=== PATIENT | female | born 1990 | race Caucasian/White ===

== ENCOUNTER 2019-01-05 09:34 | Day surgery (SDC) | payer OTHER ==
--- NOTE | 2019-01-04 18:51 | PDGENHP ---
History and Physical - Chief Complaint RIGHT HIP PAIN - History of Present Illness 1. Femoroacetabular impingement (PRINCESS)~Cam type,~with~resultant labral tear,~ RIGHT side symptomatic 2. Right~Borderline Hip Dyplasia 3. ~~History of Left Hip Arthroscopy; 2014 Dr. Maldonado 4. 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 ~Sherryenjoys soccer~4 hrs/week, yoga and hiking. Brigitte's~right~hip pain started 3 years, with~no~recalled trauma or injury, and with~no~previous complaints.~Sherrydoes not have~a known history of hip dysplasia. 11/30/2014: ~Left Hip Arthroscopy; Dr. Enriquez; 100% relief from surgery Presentation today is of~anterior, posterior~right~hip pain.~~The hip~does not~ wake her~at night and~does~click and catch on~her. Sitting~can be a real struggle~for her.~Sherrydoes~report suffering from lower back pain episodes. Sherryhas~participated in physical therapy (6 months)~and has~tried other conservative measures including dry needling and massage therapy.~Tammy~has not~ received sufficient symptomatic improvement. Sherryhas~utilized medication for pain management, including CBD oil.~Sherry has used medication since the pain began. Sherrydenies issues with the left~hip. ~ Sherryunderstands that~tammy~has a hip and pelvis problem which should be researched and wishes to get a better understanding of~her~hip status, followed by an establishment of a treatment strategy, hoping~tammy~would be able to get back to~her~well being active life. History: Past medical history:~~ None which is relevant~ Relevant familial history:~Dad: HTN, [place], [place] ~~~~~~~~~~~~~~~~~~~~~~~~~~~~~~~~~~~~Mother: of metastatic breast cancer Past surgical history:~ No. Surgery Anesthesia Year 1 LEFT HIP ARTHROSCOPY general 2014 Sherrydenies problematic issues with general anesthesia in the past. I have reviewed, verified and agree with the past medical, surgical, family and social history. Current Medications:~currently has no medications in their medication list. ALLERGIES:~has No Known Allergies. Objective: Physical Examination: Sherryis 5~feet~5~inches tall and weighs~126~Lbs. Shoe size~7.5. Sherryis AAO x3; she~is well-nourished, in NAD. Skin is warm and dry. ~ Breathing is non-labored. ~CV with RRR by pulse. Abdomen is soft, NTND. Currently,~she~walks with a~normal~gait. Trendelenburg sign is~negative~and proprioception~is normal,~both~sides. She~presents~with mild~signs of joint laxity.~Beightons Score:~1 Lower spine examination is~negative~for sciatic or femoral nerve irritation with negative~SLR &~femoral stretch tests. Range of motion of the spine is normal~for flexion, extension, and rotations,~with no~associated pain. Strength, Sensation and pulses are~normal -~bilaterally Ankles and knees exams are~normal~and~no~mal-alignment is evident.~ She~has~no leg length discrepancy. Thigh circumference is~symmetric~with no evidence for muscle atrophy~on both~ sides. Hip ROM (degrees): FL ER At 90~hip FL IR At 90~hip FL AB AD EX IR Neutral hip ER Neutral hip R 105 45 35 45 10 10 45 30 L 100 50 15-20 45 5 10 45 25 Specific hip and pelvis tests: Impingement Test RICK Roll Add. Longus R +++ +++ Negative Negative L + + Negative Negative Glut. Med ITB Posterior Imp R Negative 5/5 strength Negative 5/5 strength Negative L Negative 5/5 strength Negative 5/5 strength Negative Squeeze test measured~strong Bony Symphysis pubis is~pain free~to touch while concentric activity of the rectus abdominis, does not~produce pain at its insertion. Ilio Psos specific tests are~positive for pain during cycling for~the right hip~ and remarkable for non painful snap HF has~good strength no pain~both hips. Greater trochanteric burse is~pain free~on both hips. Piriformis tests: FAIR is~positive,~with no~local signs of neuritis related to sciatic nerve. SIJs examination is~produces pain on~right side~with~normal~RICK in relation and local tenderness. Hamstrings tests are~negative~functional contraction and negative~tendinopathy both hips. On a daily basis, the following percentages reflectDeng's overall total pain : Deep hip:~65% SIJ:~35% Imaging: Radiology studies which I~have personally reviewed, analyzed and measured are below: XR: AP of the hip and pelvis: Performed in a~good~technique Coccyx to pubic symphysis distance~0~cm. 0~degrees [place]~Lines are preserved. Minimal~Pathological signs are seen in the Symphysis Pubis.~ Minimal~Pathological signs are seen at the Ischial~tuberosity. ~ Specific measurements show: NSA~ LCE Sourcil~Angle Sharp's angle Lat. Cam Lat. Pincer C.Over~sign Head~Coverage % ATDmm R 130 26 8 45 - - - 77 N L 130 27 8 45 - - - 77 N Pos. wall sign ISS NAD ~~Dysplasia Comments R Negative Negative 17.8~mm + L Negative Negative 16.7~mm + Sclerosis Sup. Lat. OA Cysts Joint Space-WBZ Joint Space-Medial R Negative Negative Negative 4.1~mm 4.1~mm L Negative Negative Negative 4.4~mm 4.3~mm X Table lateral: Anterior cam lesion is~seen~on the right hip. Alpha Angle: ~ Right~50~degrees Left~40~degrees Impression and plan:Madi Briggs~is a~28 y.o.~active female~suffering from symptomatic~Right~hip pain due to Left~Femoroacetabular impingement (PRINCESS) Cam type,~with~resultant labral tear~causing significant disability to~her~and altering~her~sport and life activities. Physical examination, imaging, and~her~story correspond with the diagnosis mentioned above. I explained that hip dysplasia is a condition wherein the hip joint has excessive play~and instability due to a variety of factors, including the depth and adequacy of the socket, the orientation of the femur bone, and ligament laxity around the hip joint. Dysplasia ranges in severity from borderline to rajiv, with treatment options being specific to the specific nature of the problem. Left untreated, the instability in the hip joint can cause progressive tearing of the labrum and deterioration of the surface cartilage, ultimately resulting in progressive osteoarthritis of the hip. I explained that femoroacetabular impingement (PRINCESS - Cam type) arises due to a bony or soft tissue conflict between the femur (ball) and acetabulum (socket) caused by an abnormality in the shape of the femoral head and neck. Over time, repetitive impingement can result in damage to the labrum and adjacent surface cartilage within the socket, ultimately giving rise to progressive osteoarthritis of the hip. I explained that although a labral tear can be a source of pain, it is rarely the root of the problem and typically occurs secondary to an underlying abnormality in the shape and mechanics of the hip joint. I reviewed conservative treatment options for Dysplasia and PRINCESS including activity modification to avoid positions of impingement or instability, physical therapy, non-steroidal anti-inflammatory medications, and various injections (corticosteroid and PRP) aimed at reducing inflammation in the hip joint or/and preventing dynamic instability and impingement. PRP injections may promote healing and reduce symptoms in certain cases but it will not repair chronically damaged tissue. Although these measures may help to buy time~and reduce current level of symptoms, they are not a definitive solution to the problem given the underlying abnormality in the shape of the hip joint. Patients who have failed conservative management and continue to experience symptoms are candidates for definitive surgical treatment, which may consist of hip arthroscopy alone or in combination with more invasive bony realignment procedures of the hip socket and/or femur called periacetabular osteotomy (CAMMIE) or derotational femoral osteotomy (DFO). Hip arthroscopy typically includes treating the labrum with either repair or reconstruction of the torn labrum; as well as addressing the underlying abnormalities by restoring the normal shape to the hip joint. If the cartilage is damaged a Microfracture surgical procedure may also be necessary to help stimulate the growth of fibrocartilage. If a patient requires a labral reconstruction or a Microfracture, the initial rehabilitation from the surgery may take longer, but the mcc results are typically favorable. I reviewed the technical aspects of hip arthroscopy including risks, benefits, and expected course of recovery.~Sherryunderstands that hip arthroscopy is a minimally invasive outpatient procedure carried out through small incisions on the outer aspect of the hip joint. During surgery, the labral tear will be identified and either repaired or reconstructed~using bone anchors and suture material. Additionally, any excessive bone will be removed with a high-speed darya to reshape the hip joint and restore normal anatomy. Risks include infection, bleeding, injury to nearby nerves or vessels, stiffness, persistent pain, instability, venous thromboembolic disease, and traction related complications including temporary foot numbness. Rarely, revision surgery may be required to address these problems. Overall recovery takes approximately 4~ 8~months depending on the extent of damage and degree of repair. In the event that the labral tissue quality is inadequate for successful repair and healing,~Sherryunderstands that a labral reconstruction will be performed. This procedure entails placing a cadaver tissue graft within the hip joint and stabilizing it with bone anchors to build a new labrum. The overall recovery time for labral reconstruction is similar to that of labral repair, although the surgical procedure takes longer to perform. BrigitteMadiwill review the info presented. In order to obtain more detailed information regarding the alignment, orientation, and shape of the bony hip and pelvis I will order a CT scan to be performed. The results of the CT scan, including femoral torsion and acetabular version measured values and 3D images, will aid me in deciding on the best treatment strategy and surgical pre-planning. In order to better evaluate the soft tissues and cartilage of the hip joint, I will order an MRI scan. Sherrywill contact us if she~wishes to pursue further treatment in the future. Sherryis happy with this plan. I have also supplied~her~with handouts, outlining the expected surgical treatment and rehab involved. I wish~BrigitteMadiall the best, ~~ LYLE Gonzalez History Information - Allergies/Home Medication List Allergies/Adverse Reactions: No Known Allergies Allergy (Unverified 01/01/19 16:04) Home Medications: Ibuprofen 01/01/19 [Last Taken Unknown] I have personally reviewed and updated: medical history - Social History Smoking Status: Never smoked Review of Systems Review of Systems: Physical Exam Physical Exam:
[2019-01-05] MEDS ORDERED: BUPIVACAINE 0.25% 30 ML SDV ONE (09:55)
[2019-01-05] MEDS ORDERED: EPINEPHrine 1 MG/ML INJ ONE (09:55)
[2019-01-05] MEDS ORDERED: PREGABALIN 150 MG CAP PO ONE (10:04)
[2019-01-05] MEDS ORDERED: LR 1,000 ML IV ONE (10:04)
[2019-01-05] MEDS ORDERED: ceFAZolin 2 GM/DEXTROSE 100 ML IV ONE (10:04)
[2019-01-05] MEDS ORDERED: ACETAMINOPHEN 500 MG TAB PO ONE (10:04)
[2019-01-05] MEDS ORDERED: MIDAZOLAM 2 MG/2 ML VIAL IVP ONE (10:30)
--- NOTE | 2019-01-05 10:31 | PDANEPAE ---
ANE History of Present Illness right femoroacetabular impingement and hip dysplasia ANE Past Medical History - Cardiovascular History Hx Hypertension: No Hx Arrhythmias: No Hx Chest Pain: No Hx Coronary Artery / Peripheral Vascular Disease: No Hx CHF / Valvular Disease: No Hx Palpitations: No - Pulmonary History Hx COPD: No Hx Asthma/Reactive Airway Disease: No Hx Recent Upper Respiratory Infection: No Hx Oxygen in Use at Home: No Hx Sleep Apnea: No Sleep Apnea Screening Result - Last Documented: Negative - Neurologic History Hx Cerebrovascular Accident: No Hx Seizures: No Hx Dementia: No - Endocrine History Hx Diabetes: No Hypothyroid: No Hyperthyroid: No Obesity: no - Renal History Hx Renal Disorders: No - Liver History Hx Hepatic Disorders: No - Neurological & Psychiatric Hx Hx Neurological and Psychiatric Disorders: No - Cancer History Hx Cancer: No - Congenital Disorder History Hx Congenital Disorders: No - GI History GERD: no Hx Gastrointestinal Disorders: No - Chronic Pain History Chronic Pain: Yes (R HIP) - Surgical History Prior Surgeries: L ARTHROSCOPY HIP ANE Review of Systems Review of systems is: negative Review of Systems: - Exercise capacity Exercise capacity: >=4 METS METS (RN): 6 METS ANE Patient History - Allergies Allergies/Adverse Reactions: No Known Allergies Allergy (Unverified 01/01/19 16:04) - Home Medications Home Medications: Ibuprofen 01/01/19 [Last Taken 12/15/18] - NPO status NPO Status: no food or drink >8 hours NPO Since - Liquids (Date): 01/05/19 NPO Since - Liquids (Time): 05:00 NPO Since - Solids (Date): 01/04/19 NPO Since - Solids (Time): 19:30 - Anes Hx Anes Hx: no prior problems - Smoking Hx Smoking Status: Never smoked - Family Anes Hx Family Anes Hx: none Family Hx Anesthesia Complications: NEG ANE Labs/Vital Signs - Vital Signs Vital Signs: reviewed preoperatively; see RN documention for details Blood Pressure: 116/90 Heart Rate: 52 Respiratory Rate: 20 O2 Sat (%): 99 Height: 165.1 cm Weight: 56.699 kg ANE Physical Exam - Airway Neck exam: FROM Mallampati Score: Class 1 Mouth exam: normal dental/mouth exam - Pulmonary Pulmonary: no respiratory distress, no rales or rhonchi - Cardiovascular Cardiovascular: regular rate and rhythym, no murmur, rub, or gallop - ASA Status ASA Status: I ANE Anesthesia Plan Anesthesia Plan: general endotracheal anesthesia
[2019-01-05] MEDS ORDERED: PROPOFOL/EMULSION 500 MG/50 ML BOTTLE IV ONE ×3 (10:41→12:43)
[2019-01-05] MEDS ORDERED: fentaNYL 100 MCG/2 ML INJ ONE ×3 (10:43→14:03)
[2019-01-05] MEDS ORDERED: LIDOCAINE 2% 5 ML SDV ONE (10:47)
[2019-01-05] MEDS ORDERED: PROPOFOL 200 MG/20 ML VIAL ONE ×3 (10:48→12:31)
[2019-01-05] MEDS ORDERED: DEXAMETHASONE 4 MG/ML VIAL ONE ×2 (11:02)
[2019-01-05] MEDS ORDERED: ONDANSETRON 4 MG/2 ML VIAL IVP PRN (11:46)
[2019-01-05] MEDS ORDERED: PROMETHAZINE HCL 25 MG/ML INJ IVP PRN (11:46)
[2019-01-05] MEDS ORDERED: NS 500 ML IV PRN (11:46)
[2019-01-05] MEDS ORDERED: ALBUTEROL 3 ML DEYVIAL IH PRN (11:46)
[2019-01-05] MEDS ORDERED: NALOXONE HCL 0.4 MG/ML INJ IVP PRN (11:46)
[2019-01-05] MEDS ORDERED: LABETALOL HCL 5 MG/ML 20 ML MDV IVP PRN (11:46)
[2019-01-05] MEDS ORDERED: METOCLOPRAMIDE 10 MG/2 ML VIAL IVP PRN (11:46)
[2019-01-05] MEDS ORDERED: MEPERIDINE 25 MG/0.5 ML AMP IVP PRN (11:46)
[2019-01-05] MEDS ORDERED: PHENYLEPHRINE HCL 100 MCG/ML SYR IVP PRN (11:46)
[2019-01-05] MEDS ORDERED: DEXAMETHASONE 4 MG/ML VIAL IVP PRN (11:46)
[2019-01-05] MEDS ORDERED: LR 500 ML IV PRN (11:46)
[2019-01-05] MEDS ORDERED: ACETAMINOPHEN 500 MG TAB PO PRN (11:46)
[2019-01-05] MEDS ORDERED: KETOROLAC 30 MG/1 ML SDV ONE (13:21)
--- NOTE | 2019-01-05 13:41 | POSTOPPROG ---
Post Op Note Date of Operation: 01/05/19 Surgeon: Gabriel Ty Pick And [employer]vel Worker: Dr. Davenport Anesthesia: GET(General Endotracheal) Pre-op Diagnosis: Right PRINCESS Post-op Diagnosis: Right PRINCESS Procedure: Right Hip Arthroscopy Inf/Abcess present in the surg proc area at time of surgery?: No
--- NOTE | 2019-01-05 13:50 | POSTANESTH ---
Post Anesthetic Evaluation Cardiovascular Status: Normal, Stable Respiratory Status: Normal, Stable Level of Consciousness/Mental Status: Can Participate in Eval Pain Control: Adequate, Prn Tx Ordered Nausea/Vomiting Control: Adequate, Prn Tx Ordered Complications Possibly Related to Anesthesia: None Noted
[2019-01-05] MEDS: fentaNYL 100 MCG/2 ML INJ IVP PRN ×2 (14:04→14:13)
[2019-01-05] MEDS ORDERED: oxyCODONE IR 5 MG TAB ONE ×2 (14:21→15:18)
[2019-01-05] MEDS ORDERED: ACETAMINOPHEN 500 MG TAB ONE (14:22)
[2019-01-05] MEDS: oxyCODONE IR 5 MG TAB PO PRN ×2 (14:23→15:21)
[2019-01-05] MEDS ORDERED: HYDROmorphONE/DILAUDID 2 MG/ML INJ ONE (14:31)
[2019-01-05] MEDS: HYDROmorphONE/DILAUDID 2 MG/ML INJ IVP PRN ×2 (14:32→14:48)
[2019-01-05 15:56] VITALS: BP 109/70
== END 2019-01-05 16:05 | disposition home or self-care (01) ==
LOC: FSGY 09:34
PROVIDERS: ATTEND Orthopaedic Surgery Sports Medicine
PROC: BQ101ZZ Fluoroscopy of Right Hip using Low Osmolar Contrast (ICD-10-PCS; principal; 2019-01-05 10:45)
PROC: 0SQ94ZZ Repair Right Hip Joint, Percutaneous Endoscopic Approach (ICD-10-PCS; principal; 2019-01-05 10:45)
PROC: 0SB94ZZ Excision of Right Hip Joint, Percutaneous Endoscopic Approach (ICD-10-PCS; principal; 2019-01-05 10:45)
DX: M25.851 Other specified joint disorders, right hip (principal); Q65.89 Other specified congenital deformities of hip; M65.88 Other synovitis and tenosynovitis, other site; M53.3 Sacrococcygeal disorders, not elsewhere classified
CPT/HCPCS: C1713; J0171; J0690; J1100; J1170; J1885; J2250; J2704; J3010